=== PATIENT | female | born 1970 | race Caucasian/White ===

== ENCOUNTER → 2018-12-27 | Outpatient (REF) | payer OTHER ==
[2018-12-27 14:08] LABS: HEMATOCRIT 35.7 % (37.0-47.0); HEMOGLOBIN 10.2 g/dl (12.0-16.0); IMMATURE GRANULOCYTES 0.4 % (0.0-5.0); MEAN CELL VOLUME 73.9 fL CALC (80.0-100.0); MEAN CORPUSCULAR HGB 21.1 pG CALC (26.0-32.0); MEAN CORPUSCULAR HGB CONC 28.6 g/L CALC (32.0-36.0); NEUT# 6.81 thou/uL (2.00-7.15); RED BLOOD COUNT 4.83 mill/uL (4.20-5.60); RED CELL DISTRI WIDTH 17.4 % (11.5-15.5)
[2018-12-27 14:15] LABS: ALBUMIN 4.3 g/dL (3.2-5.0); ALKALINE PHOSPHATASE 95 u/l (38-126); ANION GAP 14 (6-22 (CALC)); BILIRUBIN, TOTAL 0.5 mg/dL (0.0-1.4); BUN 9 mg/dL (7-17); BUN/CREATININE RATIO 20 (12-20 (CALC)); C-REACTIVE PROTEIN 1.4 mg/dL (0-0.9); CALCULATED LDLCHOLESTEROL 100 mg/dL (62-129 (CALC)); CARBON DIOXIDE 27 mmol/l (22-30); CHLORIDE 103 mmol/l (95-108); CHOLESTEROL HDL RATIO 3.4 (<4.4 (CALC)); CREATININE 0.5 mg/dL (0.5-1.0); GFR > 60 ML/MIN (>=60 (CALC)); GFR FOR AFR.AMER. > 60 ML/MIN (>=60 (CALC)); HDL CHOLESTEROL 50 mg/dL (>=40); POTASSIUM 4.1 mmol/l (3.5-5.1); SGOT/AST 23 u/l (14-36); SODIUM 140 mmol/l (137-146); TOTAL CHOLESTEROL 171 mg/dl (0-199); TOTAL PROTEIN 8.2 g/dL (6.3-8.2); TOTAL TRIGLYCERIDES 105 mg/dl (30-149); VLDL CHOLESTROL 21 mg/dl (1-41 (CALC))
[2018-12-27 14:44] LABS: TSH, 3RD GENERATION 1.34 uIU/mL (0.47 - 4.68)
[2018-12-27 16:31] LABS: URINE BILIRUBIN - DIPSTICK NEGATIVE (NEGATIVE); URINE BLOOD DIPSTICK NEGATIVE (NEGATIVE); URINE COLOR YELLOW; URINE GLUCOSE - DIPSTICK NEGATIVE (NEGATIVE); URINE KETONE NEGATIVE (NEGATIVE); URINE LEUK ESTERASE NEGATIVE (Negative); URINE NITRITE - DIPSTICK NEGATIVE (Negative); URINE PROTEIN - DIPSTICK NEGATIVE (NEG-TRACE); URINE SPECIFIC GRAVITY 1.025; URINE UROBILINOGEN - DIPSTICK 0.2 E.U./dL (0.2)
[2018-12-27 16:32] LABS: URINE CLARITY CLEAR
== END | disposition home or self-care (01) ==
LOC: LAB 13:14
PROVIDERS: ATTEND Nurse Practitioner
DX: I10 Essential (primary) hypertension (principal); M06.9 Rheumatoid arthritis, unspecified

== ENCOUNTER 2019-03-01 19:33 | Emergency (ER) | payer SELFPAY ==
[~2019-03-01] VITALS: Ht 160 cm; Wt 127.0 kg
[2019-03-01 20:25] LABS: URINE BILIRUBIN - DIPSTICK NEGATIVE (NEGATIVE); URINE BLOOD DIPSTICK LARGE (NEGATIVE); URINE COLOR YELLOW; URINE GLUCOSE - DIPSTICK NEGATIVE (NEGATIVE); URINE KETONE NEGATIVE (NEGATIVE); URINE LEUK ESTERASE NEGATIVE (NEGATIVE); URINE NITRITE - DIPSTICK NEGATIVE (Negative); URINE PH 5.5 (4.5-8.0); URINE PROTEIN - DIPSTICK TRACE mg/dL (NEG-TRACE); URINE UROBILINOGEN - DIPSTICK 0.2 E.U./dL (0.2)
[2019-03-01 20:34] LABS: URINE RBC TNTC RBC/hpf (0-5); URINE SQUAMOUS EPITHELIAL CELL FEW EPI/hpf (0-FEW)
[2019-03-01 20:37] LABS: IMMATURE GRANULOCYTES 0.6 % (0.0-5.0); MEAN CELL VOLUME 72.4 fL CALC (80.0-100.0); MEAN CORPUSCULAR HGB 19.7 pG CALC (26.0-32.0); MEAN CORPUSCULAR HGB CONC 27.3 g/L CALC (32.0-36.0); NEUT# 5.72 thou/uL (2.00-7.15); RED BLOOD COUNT 4.56 mill/uL (4.20-5.60); RED CELL DISTRI WIDTH 19.1 % (11.5-15.5)
[2019-03-01 20:57] LABS: ACT PARTIAL THROMBO TIME 27.1 SECONDS (20.0-32.5); D-DIMER 0.37 mg/L (0.19-0.60); PROTHROMBIN TIME 10.6 SECONDS (9.0-12.5)
[2019-03-01 21:07] LABS: ALBUMIN 4.3 g/dL (3.2-5.0); ALKALINE PHOSPHATASE 109 u/l (38-126); ANION GAP 13 (6-22 (CALC)); BILIRUBIN, TOTAL 0.3 mg/dL (0.0-1.4); BUN 11 mg/dL (7-17); BUN/CREATININE RATIO 25 (12-20 (CALC)); CARBON DIOXIDE 25 mmol/l (22-30); CHLORIDE 105 mmol/l (95-108); CREATININE 0.4 mg/dL (0.5-1.0); GFR > 60 ML/MIN (>=60 (CALC)); GFR FOR AFR.AMER. > 60 ML/MIN (>=60 (CALC)); POTASSIUM 4.2 mmol/l (3.5-5.1); SGOT/AST 29 u/l (14-36); SODIUM 139 mmol/l (137-146)
[2019-03-01 21:20] LABS: MYOGLOBIN 18 ng/mL (0 - 62)
[2019-03-01 21:38] LABS: TSH, 3RD GENERATION 2.24 uIU/mL (0.47 - 4.68)
[2019-03-01] MEDS ORDERED: FERROUS SULF325 M3 PO (21:51)
[2019-03-01] MEDS ORDERED: BACTRIM DS1 TAB PO (21:51)
[2019-03-01 22:00] VITALS: BP 178/80
== END 2019-03-01 22:00 | disposition home or self-care (01) | DRG 690 ==
LOC: ED 19:33
PROVIDERS: Family Medicine
DX: N30.00 Acute cystitis without hematuria (principal); D50.9 Iron deficiency anemia, unspecified; I10 Essential (primary) hypertension; F17.210 Nicotine dependence, cigarettes, uncomplicated

== ENCOUNTER 2019-08-04 20:07 | Emergency (ER) | payer OTHER ==
[~2019-08-04] VITALS: Ht 160 cm; Wt 131.2 kg
[~2019-08-04 20:07] MED LIST: BACTRIM DS1 TAB PO; FERROUS SULF325 M3 PO
[2019-08-04 20:52] LABS: IMMATURE GRANULOCYTES 0.2 % (0.0-5.0); MEAN CORPUSCULAR HGB 28.4 pG CALC (26.0-32.0); NEUT# 5.48 thou/uL (2.00-7.15); RED BLOOD COUNT 4.55 mill/uL (4.20-5.60); RED CELL DISTRI WIDTH 13.6 % (11.5-15.5)
[2019-08-04 20:56] LABS: HEMATOCRIT 40.3 % (37.0-47.0); HEMOGLOBIN 12.9 g/dl (12.0-16.0); MEAN CELL VOLUME 88.6 fL CALC (80.0-100.0)
[2019-08-04] MEDS ORDERED: HYDROCHLOROT25 MG PO (21:00)
[2019-08-04 21:23] LABS: ALBUMIN 4.4 g/dL (3.2-5.0); ALKALINE PHOSPHATASE 99 u/l (38-126); ANION GAP 14 (6-22 (CALC)); BILIRUBIN, TOTAL 0.4 mg/dL (0.0-1.4); BUN 14 mg/dL (7-17); BUN/CREATININE RATIO 27 (12-20 (CALC)); CARBON DIOXIDE 26 mmol/l (22-30); CHLORIDE 103 mmol/l (95-108); CREATININE 0.5 mg/dL (0.5-1.0); GFR > 60 ML/MIN (>=60 (CALC)); GFR FOR AFR.AMER. > 60 ML/MIN (>=60 (CALC)); POTASSIUM 3.6 mmol/l (3.5-5.1); SGOT/AST 30 u/l (14-36); SODIUM 140 mmol/l (137-146); TOTAL PROTEIN 8.3 g/dL (6.3-8.2)
[2019-08-04 21:37] LABS: MYOGLOBIN 23 ng/mL (0 - 62)
[2019-08-04 21:54] LABS: TSH, 3RD GENERATION 1.97 uIU/mL (0.47 - 4.68)
[2019-08-04 22:19] LABS: URINE BILIRUBIN - DIPSTICK NEGATIVE (NEGATIVE); URINE BLOOD DIPSTICK TRACE-INTACT (NEGATIVE); URINE COLOR YELLOW; URINE GLUCOSE - DIPSTICK NEGATIVE (NEGATIVE); URINE KETONE TRACE mg/dL (NEGATIVE); URINE LEUK ESTERASE NEGATIVE (NEGATIVE); URINE NITRITE - DIPSTICK NEGATIVE (Negative); URINE PROTEIN - DIPSTICK TRACE mg/dL (NEG-TRACE); URINE SPECIFIC GRAVITY 1.025; URINE UROBILINOGEN - DIPSTICK 0.2 E.U./dL (0.2)
[2019-08-04 22:23] LABS: BARBITURATES NEGATIVE (NEGATIVE); COCAINE NEGATIVE (NEGATIVE); METHADONE NEGATIVE (NEGATIVE); OXCYCODONE NEGATIVE (NEGATIVE); TETRAHYDROCANNABIONOL NEGATIVE (NEGATIVE); TRICYLIC ANTIDEPRESSANTS NEGATIVE (NEGATIVE)
[2019-08-05] MEDS ORDERED: FIORICET PO (00:20)
[2019-08-05] MEDS ORDERED: LISINOPRIL20 MG PO (00:20)
[2019-08-05] MEDS ORDERED: LOPRESSOR25 M1 PO (00:20)
[2019-08-05 00:30] VITALS: BP 203/89
== END 2019-08-05 00:46 | disposition home or self-care (01) ==
LOC: ED 20:07
PROVIDERS: Family Medicine
DX: I10 Essential (primary) hypertension (principal); G93.9 Disorder of brain, unspecified; R51 Headache; R42 Dizziness and giddiness; R20.2 Paresthesia of skin

== ENCOUNTER 2019-12-15 | Emergency (ER) | payer OTHER ==
[~2019-12-15] MED LIST changes: +FIORICET PO; +HYDROCHLOROT25 MG PO; +LISINOPRIL20 MG PO; +LOPRESSOR25 M1 PO
[2019-12-15] MEDS ORDERED: NORVASC5 M1 PO (09:27)
[2019-12-15] MEDS ORDERED: AUGMENTIN500TAB PO (11:33)
[2019-12-15] MEDS ORDERED: CODEINE/GUAIFEN1 SOL PO (11:33)
[2019-12-15] MEDS ORDERED: MEDDOSEPAK PO (11:34)
[2019-12-15] MEDS ORDERED: PROVENTIL108 MCG/AC IN (11:34)
== END 2019-12-15 11:59 | disposition home or self-care (01) | DRG 153 ==
DX: J06.9 Acute upper respiratory infection, unspecified (principal); I10 Essential (primary) hypertension